=== PATIENT | female | born 1945 | race American Indian/Alaskan Native ===

== ENCOUNTER 2021-02-17 11:04 | Outpatient (CLI) | payer MEDICARE ==
--- NOTE | 2021-02-18 08:13 | Mammography Report ---
DIGITAL SCREENING MAMMOGRAM WITH CAD, 02/17/2021 CLINICAL INFORMATION / INDICATION: Routine screening mammography. TECHNIQUE: Digital bilateral 2D mammography was obtained in the craniocaudal and mediolateral obliqu e projections. This examination was interpreted with the benefit of Computer-Aided Detection analysis . COMPARISON: 01/29/2020, 12/23/2018 FINDINGS: Breast Density: The breasts are heterogeneously dense, which may obscure small masses. No dominant mass, suspicious calcifications, or architectural distortion in either breast. Bilateral benign-appearing calcifications and a left breast biopsy clip are unchanged. IMPRESSION: No mammographic evidence of malignancy. Follow up recommendation: Routine yearly BI-RADS Category 2: Benign. A "normal" or negative report should not discourage follow up or biopsy of a clinically significant f inding. A written summary of these findings will be mailed to the patient. The patient will be entered into a mammography reporting system which will generate a reminder letter for the patient's next appointmen t at the appropriate interval. The [employer] recommends yearly mammograms starting at age 40 and continuing as l jesusita as a woman is in good health. Breast MRI is recommended for women with an approximate 20-25% or greater lifetime risk of breast cancer, including women with a strong family history of breast or ova maria l cancer or who have been treated for Hodgkin's disease. Signer Name: Segundo Giles MD Signed: 02/18/2021 8:08 AM Workstation Name: [id number]
== END 2021-02-17 11:05 | disposition home or self-care (01) ==
LOC: SPVWC 11:04
PROVIDERS: ATTEND Surgery
DX: Z12.31 Encounter for screening mammogram for malignant neoplasm of breast (principal); N64.89 Other specified disorders of breast
CPT/HCPCS: 77067

== ENCOUNTER 2022-02-18 11:46 | Outpatient (CLI) | payer MEDICARE ==
--- NOTE | 2022-02-20 13:05 | Mammography Report ---
DIGITAL SCREENING MAMMOGRAM WITH CAD, 02/18/2022 CLINICAL INFORMATION / INDICATION: Routine screening mammography TECHNIQUE: Digital 2D mammography was obtained in the craniocaudal and mediolateral oblique projectio ns. This examination was interpreted with the benefit of Computer-Aided Detection analysis. COMPARISON: 02/17/2021 FINDINGS: Breast Density: The breasts are heterogeneously dense, which may obscure small masses. No dominant mass, suspicious calcifications, or architectural distortion in either breast. Left biopsy changes are again seen as are bilateral benign-appearing calcifications. No obvious skin thickening is seen in the right breast. IMPRESSION: No mammographic evidence of malignancy. Follow up recommendation: Clinical correlation for patient's complaint of right breast skin rash and pruritus is suggested. BI-RADS Category 2: BENIGN. A "normal" or negative report should not discourage follow up or biopsy of a clinically significant f inding. A written summary of these findings will be mailed to the patient. The patient will be entered into a mammography reporting system which will generate a reminder letter for the patient's next appointmen t at the appropriate interval. The [employer] recommends yearly mammograms starting at age 40 and continuing as l jesusita as a woman is in good health. Breast MRI is recommended for women with an approximate 20-25% or greater lifetime risk of breast cancer, including women with a strong family history of breast or ova maria l cancer or who have been treated for Hodgkin's disease. Signer Name: Ajay Olsen MD Signed: 02/20/2022 1:00 PM Workstation Name: [id number]
== END 2022-02-18 11:47 | disposition home or self-care (01) ==
LOC: SPVWC 11:46
PROVIDERS: ATTEND Surgery
DX: Z12.31 Encounter for screening mammogram for malignant neoplasm of breast (principal)
CPT/HCPCS: 77067